=== PATIENT | male | born 1950 | race African-American/Black ===

== ENCOUNTER 2017-04-17 16:11 | Inpatient (IN) ==
[2017-04-17] MEDS ORDERED: SODIUM CHLORIDE 0.9% 500 ML IV STA (19:42)
[2017-04-17] MEDS ORDERED: INSULIN REGULAR 100 UNIT/ML IV STA (19:47)
[2017-04-17] MEDS ORDERED: ONDANSETRON 4 MG/2 ML VIAL IV STA (19:59)
[2017-04-17 21:16] LABS: Basophils # 0.1 10*3/uL (0.0-0.2); Basophils % 0.6 % (0.0-0.8); Eosinophils % 0.1 % (0.00-10.9); Hematocrit 37.1 VOL% (42.0-52.0); Hemoglobin 12.4 GM/DL (14.0-18.0); Immature Granulocytes % 0.6 %; Immature Granulocytes Absolute 0.08 #; Lymphocytes # 0.9 10*3/uL (1.4-4.0); Lymphocytes % 7.6 % (21.2-54.2); Mean Corpuscular HGB Conc 33.4 GM/DL (32-36); Mean Corpuscular Hemoglobin 30 PG (27-34); Mean Corpuscular Volume 88.1 FL (87-102); Mean Platelet Volume 12.8 FL (9.6-12.0); Monocytes # 0.9 10*3/uL (0.11-0.8); Monocytes % 7.4 % (1.7-12.7); Neutrophils # 10.4 10*3/uL (1.4-7.4); Neutrophils % 83.7 % (38.7-73.9); Platelet Count 233 T/CUMM (130-400); Red Blood Count 4.21 MC/CUMM (3.8-5.5); Red Cell Distribution Width 13.2 % (9.3-17.3); White Blood Count 12.4 T/CUMM (4-12)
[2017-04-17 21:25] LABS: PT Patient Result 10.3 SECS
[2017-04-17] MEDS ORDERED: ONDANSETRON 4 MG/2 ML VIAL ONE (21:29)
[2017-04-17] MEDS ORDERED: INSULIN REGULAR 100 UNIT/ML ONE (21:30)
[2017-04-17 21:35] LABS: Ammonia 17 UMOL/L (11-32)
[2017-04-17 21:39] LABS: Apearance,Urine CLEAR (Clear); Bacteria,Urine Occasional /HPF (Few); Bilirubin,Urine Negative (Negative); Blood, Urine Small mg/dL (Negative); Glucose,Urine (UA) >=500 mg/dL (Negative); Ketones,Urine 5 mg/dL (Negative); Mucus,Urine Occasional /LPF (Occasional); Nitrite,Urine Negative (Negative); Protein,Urine Negative; RBC,Urine <1 /HPF (0-4); Squamous Epithelial Cell,Urine Occasional /HPF (0-10); Urine Color Yellow (Yellow); Urine Urobilinogen < 2.0 EU/DL (0.2-1.0); WBC,Urine 2 /HPF (0-6)
[2017-04-17 21:42] LABS: Alanine Aminotransferase 18 U/L (16-61); Albumin 3.9 G/DL (3.4-5.0); Alkaline Phosphatase 144 U/L (45-117); Amylase 119 U/L (25-115); Aspartate Amino Transferase 13 U/L (0-37); Blood Urea Nitrogen 82 MG/DL (7-18); Calcium 10.7 MG/DL (8.5-10.1); Lactic Acid 2.6 MMOL/L (0.4-2.0); Magnesium 3.4 MG/DL (1.8-2.4); Osmolality,Calculated 324.8 MOS/KG (273-304); Sodium 123 MMOL/L (136-145); Total Protein 9.9 G/DL (6.4-8.3); Troponin I Only < 0.015 NG/ML (0.00-0.045)
[2017-04-17 21:43] LABS: Barbiturates Screen,Urine Negative (Negative); Benzodiazepines Screen,Urine Negative (Negative); Cannabinoid Screen,Urine Negative (Negative); Opiate Screen,Urine Negative (Negative); Phencyclidine Screen,Urine Negative (Negative)
[2017-04-17 22:00] LABS: Glucose 1060 MG/DL (74-106)
[2017-04-17 22:01] LABS: Potassium 6.2 MMOL/L (3.5-5.1)
[2017-04-17] MEDS ORDERED: SODIUM CHLORIDE 0.9% 1,000 ML IV STA (22:19)
[2017-04-17] MEDS ORDERED: SODIUM CHLORIDE 0.9% 2,550 ML IV ONE (22:23)
[2017-04-17] MEDS ORDERED: SODIUM BICARBONATE 50 MEQ/50 ML VIAL IV STA (22:25)
[2017-04-17] MEDS ORDERED: DEXTROSE 50% 25 GM/50 ML VIAL IV PRN ×2 (23:06)
[2017-04-17] MEDS ORDERED: SODIUM BICARB INJ 100 MEQ in STERILE WATER INJ 400 ML IV PRN (23:06)
[2017-04-17] MEDS ORDERED: MAGNESIUM SULF RIDER 2 GM in PREMIX 1 EACH IV PRN (23:06)
[2017-04-17] MEDS ORDERED: SODIUM CHLORIDE 0.9% IV PRN (23:06)
[2017-04-17] MEDS ORDERED: POTASSIUM CHLORIDE RIDER 10 MEQ in PREMIX 1 EACH IV PRN (23:06)
[2017-04-17] MEDS ORDERED: SODIUM PHOSPHATE IV PRN (23:06)
[2017-04-17] MEDS ORDERED: SODIUM BICARBONATE 50 MEQ/50 ML SYRINGE IV STA (23:20)
[2017-04-17] MEDS ORDERED: SODIUM BICARBONATE 50 MEQ/50 ML SYRINGE IV ONE (23:21)
[2017-04-17] MEDS ORDERED: INSULIN REGULAR DRIP 100 ML IV SCH (23:30)
[2017-04-18] MEDS ORDERED: SODIUM BICARBONATE 50 MEQ/50 ML SYRINGE IV ONE (00:58)
[2017-04-18] MEDS: PIPERACILLIN/TAZOBACTAM 3,375 MG in SODIUM CHLORIDE 0.9% 100 ML IV SCH ×4 (01:36→23:30)
[2017-04-18] MEDS: SODIUM CHLORIDE 0.9% 1,000 ML IV SCH ×3 (02:00→11:24)
[2017-04-18 04:12] LABS: Albumin 3.3 G/DL (3.4-5.0); Bilirubin,Total 0.5 MG/DL (0.2-1.0); Calcium 9.3 MG/DL (8.5-10.1); Osmolality,Calculated 333.5 MOS/KG (273-304); Potassium 5.5 MMOL/L (3.5-5.1); Total Protein 7.5 G/DL (6.4-8.3)
[2017-04-18 04:13] LABS: Lactic Acid 2.8 MMOL/L (0.4-2.0)
[2017-04-18 04:44] LABS: Apearance,Urine CLEAR (Clear); Bilirubin,Urine Negative (Negative); Blood, Urine Moderate mg/dL (Negative); Glucose,Urine (UA) >=500 mg/dL (Negative); Ketones,Urine 20 mg/dL (Negative); Mucus,Urine Occasional /LPF (Occasional); Nitrite,Urine Negative (Negative); Protein,Urine Negative; Urine Color Yellow (Yellow); Urine Specific Gravity 1.016 (1.001-1.035); Urine Urobilinogen < 2.0 EU/DL (0.2-1.0); WBC,Urine <1 /HPF (0-6)
[2017-04-18 06:12] LABS: Basophils # 0.1 10*3/uL (0.0-0.2); Basophils % 0.6 % (0.0-0.8); Eosinophils # 0.1 10*3/uL (0.0-0.87); Eosinophils % 0.7 % (0.00-10.9); Hematocrit 32.3 VOL% (42.0-52.0); Hemoglobin 11.4 GM/DL (14.0-18.0); Immature Granulocytes % 0.6 %; Immature Granulocytes Absolute 0.05 #; Lymphocytes # 0.8 10*3/uL (1.4-4.0); Lymphocytes % 8.7 % (21.2-54.2); Mean Corpuscular HGB Conc 35.3 GM/DL (32-36); Mean Corpuscular Hemoglobin 30 PG (27-34); Mean Corpuscular Volume 83.9 FL (87-102); Mean Platelet Volume 12.8 FL (9.6-12.0); Monocytes # 0.1 10*3/uL (0.11-0.8); Neutrophils # 7.7 10*3/uL (1.4-7.4); Neutrophils % 88.4 % (38.7-73.9); Platelet Count 214 T/CUMM (130-400); Red Blood Count 3.85 MC/CUMM (3.8-5.5); Red Cell Distribution Width 12.7 % (9.3-17.3); White Blood Count 8.7 T/CUMM (4-12)
[2017-04-18 06:33] LABS: Band Neutrophils 4 % (0-10); Eosinophils 1 % (0-10); Lymphocytes 15 % (20-55); Segmented Neutrophils 79 % (50-85); Total Cells Counted 100
[2017-04-18 06:34] LABS: Giant Platelets Few; Hypochromasia 1+; Ovalocytes Slight; Platelet Estimate Adequate
[2017-04-18 07:01] LABS: Magnesium 2.9 MG/DL (1.8-2.4)
[2017-04-18 08:27] LABS: Lactic Acid 2.7 MMOL/L (0.4-2.0)
[2017-04-18 10:19] LABS: Osmolality,Calculated 320.3 MOS/KG (273-304); Potassium 4.3 MMOL/L (3.5-5.1)
[2017-04-18] MEDS ORDERED: INSULIN GLARGINE 100 UNIT/ML SUBCUT STA (12:57)
[2017-04-18] MEDS ORDERED: INSULIN REGULAR 100 UNIT/ML SUBCUT STA (12:58)
[2017-04-18] MEDS ORDERED: SODIUM CHLORIDE 0.9% 1,000 ML IV STA (12:59)
[2017-04-18] MEDS ORDERED: SODIUM CHLORIDE 0.9% 250 ML IV STA ×2 (13:38→14:31)
[2017-04-18 15:17] LABS: Calcium 8.8 MG/DL (8.5-10.1); Osmolality,Calculated 313.7 MOS/KG (273-304); Potassium 4.2 MMOL/L (3.5-5.1)
[2017-04-18] MEDS: SODIUM CHLORIDE 0.45% 1,000 ML IV SCH (16:27)
[2017-04-18] MEDS: INSULIN REGULAR 100 UNIT/ML SUBCUT SCH ×2 (16:38→21:39)
[2017-04-18 20:19] LABS: Calcium 8.6 MG/DL (8.5-10.1); Potassium 3.8 MMOL/L (3.5-5.1)
[2017-04-19] MEDS: SODIUM CHLORIDE 0.45% 1,000 ML IV SCH ×3 (00:30→16:06)
[2017-04-19 05:37] LABS: Calcium 8.1 MG/DL (8.5-10.1); Magnesium 2.2 MG/DL (1.8-2.4); Osmolality,Calculated 303.8 MOS/KG (273-304); Potassium 3.5 MMOL/L (3.5-5.1)
[2017-04-19] MEDS: INSULIN REGULAR 100 UNIT/ML SUBCUT SCH (08:40)
[2017-04-19] MEDS: PIPERACILLIN/TAZOBACTAM 3,375 MG in SODIUM CHLORIDE 0.9% 100 ML IV SCH ×2 (08:43→15:50)
[2017-04-19] MEDS ORDERED: GLUCAGON 1 MG VIAL IM PRN ×2 (09:31→09:32)
[2017-04-19] MEDS ORDERED: DEXTROSE 50% 25 GM/50 ML VIAL IV PRN ×2 (09:31→09:32)
[2017-04-19] MEDS: INSULIN LISPRO 100 UNIT/ML SUBCUT SCH ×3 (14:04→21:18)
[2017-04-19] MEDS ORDERED: INSULIN GLARGINE 100 UNIT/ML SUBCUT SCH (21:00)
[2017-04-20] MEDS: SODIUM CHLORIDE 0.45% 1,000 ML IV SCH ×3 (00:10→16:46)
[2017-04-20] MEDS: PIPERACILLIN/TAZOBACTAM 3,375 MG in SODIUM CHLORIDE 0.9% 100 ML IV SCH ×3 (00:10→16:47)
[2017-04-20] MEDS: ASPIRIN EC 325 MG TABLET PO SCH (09:55)
[2017-04-20] MEDS: CLOPIDOGREL 75 MG TABLET PO SCH (09:55)
[2017-04-20] MEDS: ATORVASTATIN 20 MG TABLET PO SCH (09:55)
[2017-04-20] MEDS: INSULIN LISPRO 100 UNIT/ML SUBCUT SCH ×4 (09:55→21:29)
[2017-04-20] MEDS: COLCHICINE 0.6 MG TABLET PO PRN (12:34)
[2017-04-20] MEDS: metFORMIN 500 MG TABLET PO SCH (16:48)
[2017-04-20] MEDS ORDERED: metFORMIN 500 MG TABLET PO SCH (17:00)
[2017-04-20] MEDS: INSULIN GLARGINE 100 UNIT/ML SUBCUT SCH (21:29)
[2017-04-21] MEDS: PIPERACILLIN/TAZOBACTAM 3,375 MG in SODIUM CHLORIDE 0.9% 100 ML IV SCH ×3 (00:04→15:59)
[2017-04-21] MEDS: SODIUM CHLORIDE 0.45% 1,000 ML IV SCH ×2 (00:29→08:30)
[2017-04-21] MEDS: COLCHICINE 0.6 MG TABLET PO PRN (06:35)
[2017-04-21 07:53] LABS: Calcium 7.9 MG/DL (8.5-10.1); Magnesium 1.6 MG/DL (1.8-2.4); Osmolality,Calculated 285.3 MOS/KG (273-304); Potassium 3.4 MMOL/L (3.5-5.1)
[2017-04-21] MEDS: INSULIN LISPRO 100 UNIT/ML SUBCUT SCH ×4 (08:24→21:44)
[2017-04-21] MEDS: CLOPIDOGREL 75 MG TABLET PO SCH (08:25)
[2017-04-21] MEDS: metFORMIN 500 MG TABLET PO SCH ×2 (08:25→18:05)
[2017-04-21] MEDS: ASPIRIN EC 325 MG TABLET PO SCH (08:25)
[2017-04-21] MEDS: ATORVASTATIN 20 MG TABLET PO SCH (08:25)
[2017-04-21] MEDS ORDERED: KETOROLAC 30 MG/1 ML VIAL IM ONE (12:38)
[2017-04-21] MEDS: INSULIN GLARGINE 100 UNIT/ML SUBCUT SCH (21:45)
[2017-04-22] MEDS: PIPERACILLIN/TAZOBACTAM 3,375 MG in SODIUM CHLORIDE 0.9% 100 ML IV SCH ×3 (00:55→15:42)
[2017-04-22 03:29] LABS: Calcium 7.5 MG/DL (8.5-10.1); Osmolality,Calculated 282.3 MOS/KG (273-304); Potassium 3.4 MMOL/L (3.5-5.1)
[2017-04-22] MEDS: INSULIN LISPRO 100 UNIT/ML SUBCUT SCH ×3 (08:13→15:43)
[2017-04-22] MEDS: COLCHICINE 0.6 MG TABLET PO PRN (09:13)
[2017-04-22] MEDS: CLOPIDOGREL 75 MG TABLET PO SCH (09:14)
[2017-04-22] MEDS: ATORVASTATIN 20 MG TABLET PO SCH (09:14)
[2017-04-22] MEDS: metFORMIN 500 MG TABLET PO SCH (09:14)
[2017-04-22] MEDS: ASPIRIN EC 325 MG TABLET PO SCH (09:23)
[2017-04-22] MEDS: POTASSIUM CHLORIDE 20 MEQ TABLET PO PRN ×2 (10:48→12:07)
[2017-04-22 12:05] VITALS: BP 115/50
== END 2017-04-22 16:00 | disposition home or self-care (01) | DRG 637 ==
LOC: N.ED 16:11 → SUPCPDRO 22:59 → N.EDINP 22:59 → SUATTDRO 22:59 → N.ICU 04-18 15:00 → N.2E 04-19 16:51
PROVIDERS: ADMIT Internal Medicine Nephrology; ATTEND Internal Medicine Nephrology